=== PATIENT | male | born 1955 | race Caucasian/White ===

== ENCOUNTER → 2017-07-18 | Day surgery (SDC) | payer BC ==
[~2017-07-18] MED LIST: HYDROmorphone 1 MG/ML Syringe ONE; Lactated Ringers 1,000 ML IV SCH; Lactated Ringers 1,000 ML ONE; Lidocaine 1%/Sod Bicarbonate in NS 8.4% 1 ML Syringe IDERM PRN; Midazolam 1 MG/ML 2 ML SDV ONE; Ondansetron 4 MG/2 ML SDV ONE; Propofol 200 MG/20 ML SDV ONE; Sodium Chloride 0.9% 10 ML Syringe FLUSH PRN; Sodium Chloride 0.9% 10 ML Syringe FLUSH SCH; fentaNYL 100 MCG/2 ML SDV ONE; fentaNYL 250 MCG/5 ML SDV ONE
--- NOTE | 2017-07-18 11:39 | PCM.PREANE ---
Preanesthetic Assessment - Anesthesia/Transfusion/Family Hx Anesthesia History: Prior Anesthesia Without Reaction Family History of Anesthesia Reaction: No Transfusion History: No Prior Transfusion(s) - Review of Systems General: No Symptoms Pulmonary: No Symptoms Cardiovascular: No Symptoms Gastrointestinal: Constipation (on and off) Neurological: No Symptoms Other: Reports: Diabetes, Thyroid Problems - Physical Assessment NPO Status Date: 07/18/17 NPO Status Time: 07:00 Pulse: 81 O2 Sat by Pulse Oximetry: 95 Respiratory Rate: 16 Blood Pressure: 142/91 Temperature: 36.6 C Vital Signs: Last Vital Signs Temp 36.6 C 07/18/17 10:48 Pulse 81 07/18/17 10:48 Resp 16 07/18/17 10:48 BP 142/91 H 07/18/17 10:48 Pulse Ox 95 07/18/17 10:48 Height: 1.85 m Weight: 103.419 kg ASA Class: 3 Mental Status: Alert & Oriented x3 Dentition: Reports: Normal Dentition, Caries Thyro-Mental Finger Breadths: 3 Mouth Opening Finger Breadths: 3 ROM/Head Extension: Full Lungs: Clear to Auscultation, Normal Respiratory Effort Cardiovascular: Regular Rate, Regular Rhythm, No Murmurs - Lab Values: Laboratory Last Values POC Glucose 108 mg/dL (80-115) 07/18/17 11:07 MRSA (PCR) Negative 07/09/17 14:36 - Allergies Allergies/Adverse Reactions: Allergies Allergy/AdvReac Type Severity Reaction Status Date / Time codeine Allergy Rash Verified 02/25/14 14:54 - Blood Blood Available: No Product(s) Available: None - Anesthesia Plan Pre-Op Medication Ordered: None - Acknowledgements Anesthesia Type Planned: General Anesthesia Pt an Appropriate Candidate for the Planned Anesthesia: Yes Alternatives and Risks of Anesthesia Discussed w Pt/Guardian: Yes Pt/Guardian Understands and Agrees with Anesthesia Plan: Yes PreAnesthesia Questionnaire HEENT History: Reports: Allergic Rhinitis, Impaired Vision, Otitis Media, Sinusitis, Other (See Below) Other HEENT History: throat irritation, tinnitis, wears glasses Cardiovascular History: Reports: High Cholesterol, Hypertension, Other (See Below) Other Cardiovascular History: intermittent chest pain Respiratory History: Reports: None Gastrointestinal History: Reports: Chronic Constipation, GERD, Irritable Bowel Syndrome Genitourinary History: Reports: Prostate Disorder, Other (See Below) Other Genitourinary History: erectile dysfunction POLICY VALUE CALCULATOR History: Reports: None Musculoskeletal History: Reports: Osteoarthritis, Other (See Below) Other Musculoskeletal History: left elbow pain, left foot pain and sprain, tendintis, rotator cuff impingement Neurological History: Reports: Headaches, Chronic, Other (See Below) Other Neuro History: cervical radicular pain, cervical spine dengeration Psychiatric History: Reports: Anxiety, Depression, PTSD Endocrine/Metabolic History: Reports: Diabetes, Type II, Other (See Below) Other Endocrine/Metabolic History: thyroid nodule Hematologic History: Reports: None Immunologic History: Reports: None Oncologic (Cancer) History: Reports: None Dermatologic History: Reports: None - Past Surgical History Cardiovascular Surgical History: Reports: None Respiratory Surgical History: Reports: None GI Surgical History: Reports: Colonoscopy Female Surgical History: Reports: None Male Surgical History: Reports: None Neurological Surgical History: Reports: C-Spine Musculoskeletal Surgical History: Reports: Other (See Below) Other Musculoskeletal Surgeries/Procedures:: foot surgeyr, knee surgery, shoulder surgery Oncologic Surgical History: Reports: None Dermatological Surgical History: Reports: None - SUBSTANCE USE Smoking Status *Q: Never Smoker Days Per Week of Alcohol Use: 0 Number of Drinks Per Day: 0 Total Drinks Per Week: 0 Recreational Drug Use History: No Recreational Drug Type: Reports: Oxycodone, Valium - HOME MEDS Home Medications: Home Meds Diazepam 5 mg PO TID PRN 02/25/14 [History] Fluticasone Propionate [Flonase] 2 spray CAMILO QAM 02/25/14 [History] Hydrochlorothiazide 12.5 mg PO DAILY 02/25/14 [History] Multivitamin [Multi-Vitamin Daily] 1 tab PO DAILY 02/25/14 [History] amLODIPine/Benazepril [Lotrel 5-20 MG] 5 - 20 mg PO DAILY 10/03/14 [History] Amitriptyline [Elavil] 10 mg PO BEDTIME 07/17/17 [History] Cholecalciferol (Vitamin D3) [Vitamin D3] 2,000 unit PO DAILY 07/17/17 [History] Metoprolol Succinate 25 mg PO DAILY 07/17/17 [History] Omeprazole 40 mg PO DAILY 07/17/17 [History] Polyethylene Glycol 3350 [MiraLAX] 1 dose PO DAILY 07/17/17 [History] QUEtiapine Fumarate [Quetiapine Fumarate] 25 mg PO DAILY 07/17/17 [History] Sildenafil [Viagra] 50 mg PO ASDIRECTED PRN 07/17/17 [History] buPROPion HCl [Wellbutrin Xl] 300 mg PO DAILY 07/17/17 [History] metFORMIN [Glucophage XR] 500 mg PO BID 07/17/17 [History] Acetaminophen/oxyCODONE [Percocet 325-5 MG] 1 - 2 each PO Q6H PRN #40 tab [Rx] Aspirin 325 mg PO BID #84 tab 07/18/17 [Rx] - CURRENT (IN HOUSE) MEDS Current Meds: Current Medications Lactated Ringer's (Ringers, Lactated) 1,000 mls @ 125 mls/hr IV ASDIRECTED ANNIKA Stop: 07/18/17 23:00 Lidocaine/Sodium Bicarbonate (Buffered Lidocaine 1% In Ns 8.4%) 0.25 ml IDERM ONETIME PRN PRN Reason: Prior to IV Start Stop: 07/18/17 18:00 Sodium Chloride (Saline Flush) 10 ml FLUSH ASDIRECTED PRN PRN Reason: Keep Vein Open Stop: 07/18/17 18:00 Discontinued Medications Bupivacaine HCl (Marcaine 0.25%) Confirm Administered Dose 30 ml .ROUTE .STK- MED ONE Stop: 07/18/17 11:07
[2017-07-18] MEDS: Bupivacaine 0.25% 30 ML SDV ONE ×2 (13:03→14:50)
--- NOTE | 2017-07-18 15:12 | PCM.POSTAN ---
POST ANESTHESIA ASSESSMENT - MENTAL STATUS Mental Status: Alert, Oriented - VITAL SIGNS Pulse Rate: 81 SaO2: 90 Resp Rate: 9 Blood Pressure: 137/81 Temperature: 97.5 C - RESPIRATORY Respiratory Status: Respiratory Rate WNL, Airway Patent, O2 Saturation Stable - CARDIOVASCULAR CV Status: Pulse Rate WNL, Blood Pressure Stable - GASTROINTESTINAL GI Status: No Symptoms - PAIN Pain Score: 0 - POST OP HYDRATION Hydration Status: Adequate & Stable
--- NOTE | 2017-07-18 15:13 | CR ---
Left foot: Multiple fluoroscopic spot views were obtained of the left foot. Study obtained utilizing C-arm device in the operating room. Comparison: Prior CT foot exam of 05/29/17 and left foot x-ray of 03/04/17. Study shows reduction of previous Lisfranc dislocation/fracture with placement of plate and screws across the tarsometatarsal joints of the first through third digits. Additional screw is identified between the tarsometatarsal joint of the first digit. Additional screw is seen crossing the first cuneiform bone into the base of the second cuneiform bone in oblique orientation. Fluoroscopy time given as 52.8 seconds. Impression: 1. Reduction of previous Lisfranc dislocation/fracture with plate and screws being placed as described above. Diagnostic code #2
[2017-07-18] MEDS: Acetaminophen/oxyCODONE 325-5 MG Tab PO PRN ×2 (16:47→18:20)
[2017-07-18 19:34] VITALS: BP 166/77
--- NOTE | 2017-07-24 07:16 | PCM.OPNOTE ---
- General Post-Op/Procedure Note Date of Surgery/Procedure: 07/18/17 Operative Procedure(s): left first, second, and third tarsometatarsal joint fusion Pre Op Diagnosis: left chronic Lisfranc joint fracture-dislocation Post-Op Diagnosis: Same Anesthesia Technique: General LMA, Local Primary Surgeon: Leon Senior Anesthesia Provider: Rosalino Flanagan Prestidigitator: Rebecca Silva EBL in mLs: 10 Complications: None Condition: Good
--- NOTE | 2017-07-24 09:36 | OR ---
DATE OF OPERATION: 07/18/2017 SURGEON: Leon Senior MD OPERATION PERFORMED: Left 1st, 2nd, and 3rd tarsometatarsal joint fusion. PREOPERATIVE DIAGNOSIS: Left chronic Lisfranc joint fracture dislocation. POSTOPERATIVE DIAGNOSIS: Left chronic Lisfranc joint fracture dislocation. ANESTHESIA TECHNIQUE: General LMA with local. ANESTHESIA PROVIDER: Jose Flanagan CRNA MATERIAL DAMAGE ADJUSTER: Rebecca Silva PA-C. ESTIMATED BLOOD LOSS: 10 mL. COMPLICATIONS: None. CONDITION: Stable. DESCRIPTION OF PROCEDURE: The patient was identified in the preop holding area. Proper site was marked and identified by the surgeon. The patient was taken back to the operating theater where after adequate anesthesia, the patient's left lower extremity had a nonsterile tourniquet applied and was then sterilely prepped and draped in the usual sterile fashion. OR time-out was performed. The patient received 2 g IV Ancef. At this time, the left lower extremity was exsanguinated. Tourniquet was insufflated to 250 mmHg. At this time, a standard incision was made just lateral to the anterior tibialis insertion between the 1st and 2nd tarsometatarsal joints. Care was taken to protect the neurovascular bundles and full thickness incision was made through the skin. The extensor digitorum brevis was then elevated making sure to go subperiosteally at the joint. The 1st tarsometatarsal joint was identified and was then opened and distracted with the use of a radha as well as an osteotome and a mallet. All cartilaginous material was removed from the joint. At this time, attention was turned to the Lisfranc joint and dorsally there was a large amount of scar tissue between the 1st and 2nd metatarsal bases. This was then rongeured out, so we could reduce the Lisfranc joint. At this time, again the cartilage was removed from the 2nd tarsometatarsal joint, using a radha and an osteotome, it was found to be sufficiently denuded of all cartilaginous surfaces. At this time, under direct visualization, using C-arm fluoroscopy, I reduced the 1st tarsometatarsal joint, making sure there was no dorsal subluxation and a 3.5 drill was used for over drill of the near cortex from the 1st metatarsal into the medial cuneiform and a 2.5 drill bit was then used in the medial cuneiform for a lag by intent with 3.5 cortical screw. There was good compression across it and adequate fixation and reduction on both AP and lateral views. At this time, a dorsal 5 hole locking plate was placed over the top of this joint as well and 2 locking screws were placed on either side of the fused 1st tarsometatarsal joint and had adequate fixation. Attention was turned to the 2nd joint, at this time, a [id number] reduction clamp was used for reduction of the 2nd metatarsal to the 1st metatarsal through a small poke hole incision on the medial side of the foot. At this time, once this was done, another over drill bit was again was used through the medial cuneiform, at this time, going into the base of the 2nd metatarsal. A 3.5 cortical screw with lag by intent was then done from the medial cuneiform into the base of the 2nd metatarsal and had good purchase and adequate reduction of the Lisfranc joint on both AP and lateral views and oblique views. At this time, another dorsal locking plate was placed over the 2nd metatarsal tarsal joints and 2 locking screws were placed both proximally and distally to the fused joint, it had an adequate fixation. At this time, attention was turned to 3rd joint, another incision was made, at this time, directly over the 4th ray blunt dissection was taken down. Care was taken of the neurovascular bundles and the 3rd tarsometatarsal joint was identified, again a radha and an osteotome were used to denude all cartilage from the 3rd tarsometatarsal joint. Once this was sufficiently done, the patient was noted to have good compression across it without a lag screw, so at this time, I did do a locking plate dorsally over the 3rd tarsometatarsal joint and I had good compression as well as fixation on radiographs both AP oblique and lateral. At this time, adequate saline was irrigated through all wounds. Final films were taken showing adequate fixation of all tarsometatarsal joints and demineralized bone matrix putty was then placed all 3 joints around the fusion areas. Once this was done, 3-0 Vicryl was used subcutaneously and 4-0 nylon was used for the skin. The patient was placed in a sterile soft dressing as well as a posterior slab splint and sent to PACU in stable condition. ANESTHESIA: MMODAL /[id number] ORLIN
== END | disposition home or self-care (01) ==
LOC: JD.SDS 09:48
PROVIDERS: ATTEND Orthopaedic Surgery
DX: M24.475 Recurrent dislocation, left foot (principal); I10 Essential (primary) hypertension; E11.9 Type 2 diabetes mellitus without complications; F41.8 Other specified anxiety disorders; K21.9 Gastro-esophageal reflux disease without esophagitis; Z88.8 Allergy status to other drugs, medicaments and biological substances; Z79.84 Long term (current) use of oral hypoglycemic drugs; Z79.899 Other long term (current) drug therapy; J30.2 Other seasonal allergic rhinitis; Z95.2 Presence of prosthetic heart valve; Z98.890 Other specified postprocedural states
CPT/HCPCS: 28730; 76000; 82962; 87641; A9270; C1713; C1769; C1776; J1170; J2250; J2405; J3010; J3490; J7120; J2704

== ENCOUNTER 2019-05-24 16:40 | Emergency (ER) | payer MEDICARE, BC ==
[2019-05-24 17:16] VITALS: BP 147/100; PULSE 80
== END 2019-05-24 17:17 | disposition left against medical advice (07) ==
LOC: JD.ED 16:40
DX: Z53.21 Procedure and treatment not carried out due to patient leaving prior to being seen by health care provider (principal)

== ENCOUNTER 2019-06-04 11:58 | Day surgery (SDC) | payer MEDICARE, BC ==
[~2019-06-04 11:58] MED LIST changes: -HYDROmorphone 1 MG/ML Syringe ONE; -Lactated Ringers 1,000 ML ONE; -Midazolam 1 MG/ML 2 ML SDV ONE; -Ondansetron 4 MG/2 ML SDV ONE; -Propofol 200 MG/20 ML SDV ONE; -Sodium Chloride 0.9% 10 ML Syringe FLUSH SCH; -fentaNYL 100 MCG/2 ML SDV ONE; -fentaNYL 250 MCG/5 ML SDV ONE
[2019-06-04] MEDS: Bupivacaine 0.25% 10 ML SDV ONE ×2 (13:20→13:55)
--- NOTE | 2019-06-04 13:28 | PCM.PREANE ---
Preanesthetic Assessment - Anesthesia/Transfusion/Family Hx Anesthesia History: Prior Anesthesia Without Reaction Family History of Anesthesia Reaction: No Transfusion History: No Prior Transfusion(s) - Review of Systems General: No Symptoms Pulmonary: No Symptoms Cardiovascular: No Symptoms Gastrointestinal: No Symptoms Neurological: No Symptoms Other: Reports: None, Diabetes - Physical Assessment NPO Status Date: 06/04/19 NPO Status Time: 05:00 Height: 1.85 m Weight: 98.9 kg ASA Class: 2 Mental Status: Alert & Oriented x3 Airway Class: Mallampati = 1 Dentition: Reports: Caries Thyro-Mental Finger Breadths: 3 Mouth Opening Finger Breadths: 3 ROM/Head Extension: Full Lungs: Clear to Auscultation, Normal Respiratory Effort Cardiovascular: Regular Rate, Regular Rhythm - Lab Values: Laboratory Last Values POC Glucose 90 mg/dL (80-115) 06/04/19 12:39 - Allergies Allergies/Adverse Reactions: Allergies Allergy/AdvReac Type Severity Reaction Status Date / Time codeine Allergy Rash Verified 06/03/19 16:56 Sulfa (Sulfonamide Allergy Rash Verified 06/03/19 16:56 Antibiotics) - Blood Blood Available: No Product(s) Available: None - Anesthesia Plan Pre-Op Medication Ordered: None - Acknowledgements Anesthesia Type Planned: MAC Pt an Appropriate Candidate for the Planned Anesthesia: Yes Alternatives and Risks of Anesthesia Discussed w Pt/Guardian: Yes Pt/Guardian Understands and Agrees with Anesthesia Plan: Yes PreAnesthesia Questionnaire HEENT History: Reports: Allergic Rhinitis, Hard of Hearing, Impaired Vision, Otitis Media, Sinusitis, Other (See Below) Other HEENT History: throat irritation, tinnitis, wears glasses Cardiovascular History: Reports: High Cholesterol, Hypertension, Other (See Below) Other Cardiovascular History: intermittent chest pain Respiratory History: Reports: None Gastrointestinal History: Reports: Chronic Constipation, GERD, Irritable Bowel Syndrome, Other (See Below) Other Gastrointestinal History: epigastric pain, abdominal pain, abdominal surgery Genitourinary History: Reports: Prostate Disorder, Other (See Below) Other Genitourinary History: erectile dysfunction, dysuria, frequency FULL DECATOR OPERATOR History: Reports: None Musculoskeletal History: Reports: Osteoarthritis, Other (See Below) Other Musculoskeletal History: left elbow pain, left foot pain and sprain, tendintis, rotator cuff impingement, hand laceration Neurological History: Reports: Headaches, Chronic, Other (See Below) Other Neuro History: cervical radicular pain, cervical spine dengeration, spondylosis Psychiatric History: Reports: Anxiety, Depression, PTSD Endocrine/Metabolic History: Reports: Diabetes, Type II, Obesity/BMI 30+, Other (See Below) Other Endocrine/Metabolic History: thyroid nodule, goiter Hematologic History: Reports: None Immunologic History: Reports: None Oncologic (Cancer) History: Reports: None Dermatologic History: Other Dermatologic History: bug bite, skin infection, corn/callous - Past Surgical History HEENT Surgical History: Reports: None Cardiovascular Surgical History: Reports: None Respiratory Surgical History: Reports: None GI Surgical History: Reports: Colonoscopy Female Surgical History: Reports: None Male Surgical History: Reports: None Endocrine Surgical History: Reports: None Neurological Surgical History: Reports: C-Spine Musculoskeletal Surgical History: Reports: Other (See Below) Other Musculoskeletal Surgeries/Procedures:: foot surgeyr, knee surgery, shoulder surgery Oncologic Surgical History: Reports: None Dermatological Surgical History: Reports: None - SUBSTANCE USE Smoking Status *Q: Never Smoker Tobacco Use Within Last Twelve Months: No Second Hand Smoke Exposure: Yes Days Per Week of Alcohol Use: 1 Number of Drinks Per Day: 1 Total Drinks Per Week: 1 Recreational Drug Use History: No - HOME MEDS Home Medications: Home Meds Fluticasone Propionate [Flonase] 2 spray CAMILO QAM 02/25/14 [History] hydroCHLOROthiazide [Hydrochlorothiazide] 12.5 mg PO DAILY 02/25/14 [History] Cholecalciferol (Vitamin D3) [Vitamin D3] 2,000 unit PO DAILY 07/17/17 [History] metFORMIN [Glucophage XR] 500 mg PO BID 07/17/17 [History] Esomeprazole Magnesium [Nexium] 20 mg PO DAILY 06/03/19 [History] Multivitamin/Iron/Folic Acid [Centrum Adults Tablet] 1 tab PO DAILY 06/03/19 [ History] Tamsulosin [Flomax] 0.4 mg PO DAILY 06/03/19 [History] polyethylene glycoL 3350 [MiraLAX] 1 dose PO DAILY 06/03/19 [History] Acetaminophen/HYDROcodone [[place] 325-5 MG] 1 - 2 tab PO Q6H PRN #30 tablet 06/04 [Rx] Aspirin 325 mg PO BID #84 tab 06/04/19 [Rx] - CURRENT (IN HOUSE) MEDS Current Meds: Current Medications Lactated Ringer's (Ringers, Lactated) 1,000 mls @ 125 mls/hr IV ASDIRECTED ANNIKA Lidocaine/Sodium Bicarbonate (Buffered Lidocaine 1% In Ns 8.4%) 0.25 ml IDERM ONETIME PRN PRN Reason: Prior to IV Start Sodium Chloride (Saline Flush) 10 ml FLUSH ASDIRECTED PRN PRN Reason: Keep Vein Open Discontinued Medications Bupivacaine HCl (Sensorcaine-Mpf 0.25%) Confirm Administered Dose 40 ml .ROUTE .STK-MED ONE Stop: 06/04/19 12:15
[2019-06-04] MEDS ORDERED: Propofol 200 MG/20 ML SDV ONE ×2 (13:34→13:54)
[2019-06-04] MEDS ORDERED: fentaNYL 250 MCG/5 ML SDV ONE (13:34)
[2019-06-04] MEDS ORDERED: Midazolam 1 MG/ML 2 ML SDV ONE (13:34)
[2019-06-04] MEDS ORDERED: ceFAZolin 1 GM Vial ONE (13:45)
[2019-06-04] MEDS ORDERED: Labetalol 100 MG/20 ML MDV ONE (14:00)
[2019-06-04] MEDS ORDERED: Ketorolac 30 MG/ML SDV ONE (14:05)
[2019-06-04] MEDS ORDERED: Lactated Ringers 1,000 ML ONE (14:12)
--- NOTE | 2019-06-04 15:13 | CR ---
Left foot: Two views of the left forefoot were obtained. Study obtained utilizing C-arm device. Comparison: Previous left foot exam of 03/04/17. Study shows resection around the PIP joint of the second digit. Longitudinal pin is in place. Fluoroscopy time is given as 6.4 seconds. Impression: 1. Procedural study as noted above. Diagnostic code #2 This report was dictated in [place] Standard Time
[2019-06-04 15:33] VITALS: BP 103/65; PULSE 62
--- NOTE | 2019-06-08 07:05 | PCM.OPNOTE ---
- General Post-Op/Procedure Note Date of Surgery/Procedure: 06/04/19 Operative Procedure(s): left second toe claw toe correction with resection arthroplasty with extensor lengthening, and flexor tenotomy with percutaneous pinning Pre Op Diagnosis: left second claw toe with fixed deformity Post-Op Diagnosis: Same Anesthesia Technique: Local, MAC Primary Surgeon: Leon Senior Anesthesia Provider: Rosalino Flanagan Project Management Director: Rebecca Silva EBL in mLs: 10 Complications: None Condition: Good
--- NOTE | 2019-06-10 08:06 | OR ---
DATE OF OPERATION: 06/04/2019 SURGEON: Leon Senior MD OPERATION PERFORMED: Left 2nd claw toe correction with resection arthroplasty with extensor lengthening of flexor tenotomy with percutaneous pinning. PREOPERATIVE DIAGNOSIS: Left 2nd claw toe fixed deformity. POSTOPERATIVE DIAGNOSIS: Left 2nd claw toe fixed deformity. ANESTHESIA: Local MAC. ANESTHESIA PROVIDER: Jose Bergeron. CARPET SEWER: Rebecca Silva PA-C ESTIMATED BLOOD LOSS: 10 mL. COMPLICATIONS: None. CONDITION: Stable. DESCRIPTION OF PROCEDURE: The patient was identified in the preoperative holding area. Proper site was marked and identified by the surgeon. The patient was taken back to the operating theater, where after adequate anesthesia, the patient's right lower extremity was sterilely prepped and draped in usual sterile fashion. OR time- out was performed. The patient received 2 g of IV Ancef. At this time, right lower extremity was exsanguinated and the Esmarch was used as a tourniquet on the leg. 1% lidocaine without epinephrine and 0.25% Marcaine without epinephrine was then used to anesthetize the left 2nd toe as well as the incisional sites. Incision was made plantarly 1st over the flexor tendon distally and this was taken down to the tendon sheath. The tendon sheath was then opened. Ragnell retractors protected the neurovascular bundles at this time. The flexor tenotomy of the deep flexor tendons was then performed and the patient had correction of the DIP claw-toe deformity at that time. Incision was then made over the dorsum of the 2nd toe from the MTP joint distally to the PIP joint at this time, and this was taken down to the MCP capsule and an MCP dorsal capsulotomy was then performed. After this, a Z-lengthening of the extensor tendon was done all the way down past the PIP joint. PIP joint was identified and a head-neck resection of the PIP joint was then undertaken at this time for resection arthroplasty. The patient was noted to have good complete correction of the claw toe at this time. A 0.045 K-wire was then placed in a retrograde fashion through the tip of the toe all the way through the proximal phalanx and into the metatarsal in a straightened position. At this time, it was found to be adequately corrected. Adequate saline was then irrigated through the wound. 3-0 Vicryl was then used for repair of the Z-lengthening of the extensor tendon. 3-0 Vicryl was used subcutaneously and 4-0 nylon was used for closure of the skin. The patient was placed in a sterile soft dressing and a postop shoe and sent to the PACU in stable condition. PORTIA /[id number]
== END 2019-06-04 15:30 | disposition home or self-care (01) ==
LOC: JD.SDS 11:58
PROVIDERS: ATTEND Orthopaedic Surgery
DX: M20.5X2 Other deformities of toe(s) (acquired), left foot (principal); I10 Essential (primary) hypertension; E11.9 Type 2 diabetes mellitus without complications; E78.1 Pure hyperglyceridemia; E78.00 Pure hypercholesterolemia, unspecified; F32.9 Major depressive disorder, single episode, unspecified; F41.9 Anxiety disorder, unspecified; F43.10 Post-traumatic stress disorder, unspecified; G89.29 Other chronic pain; H90.3 Sensorineural hearing loss, bilateral; E04.1 Nontoxic single thyroid nodule; K21.9 Gastro-esophageal reflux disease without esophagitis; M19.90 Unspecified osteoarthritis, unspecified site; E66.9 Obesity, unspecified; Z88.5 Allergy status to narcotic agent; Z88.2 Allergy status to sulfonamides; Z79.82 Long term (current) use of aspirin; Z79.84 Long term (current) use of oral hypoglycemic drugs; Z79.899 Other long term (current) drug therapy
CPT/HCPCS: 28285; 76000; 82962; 93005; C1713; J0690; J1885; J2250; J2704; J3010; J3490; J7120; 01480

== ENCOUNTER 2020-05-16 07:12 | Day surgery (SDC) | payer MEDICARE, BC ==
[~2020-05-16 07:12] MED LIST changes: +Acetaminophen 325 MG Tab PO SCH; +EPINEPHrine 1 MG/ML SDV ONE; +Midazolam 1 MG/ML 2 ML SDV ONE; +Pregabalin 25 MG Cap PO SCH; +Propofol 200 MG/20 ML SDV ONE; +Ropivacaine 0.5% 5 MG/ML 30 ML SDV ONE; +ceFAZolin 1 GM Vial ONE; +fentaNYL 100 MCG/2 ML SDV ONE; +oxyCODONE ER 10 MG TAB.ER PO SCH
--- NOTE | 2020-05-16 07:23 | PCM.PREANE ---
Preanesthetic Assessment - Procedure Proposed Procedure: left total knee - Anesthesia/Transfusion/Family Hx Anesthesia History: Prior Anesthesia Without Reaction Family History of Anesthesia Reaction: No Transfusion History: No Prior Transfusion(s) - Review of Systems General: No Symptoms Pulmonary: No Symptoms Cardiovascular: No Symptoms Gastrointestinal: No Symptoms Neurological: No Symptoms Other: Reports: Diabetes, Thyroid Problems (2 nodules), Sinus Problem (allergies), Depression, Anxiety - Physical Assessment NPO Status Date: 05/15/20 NPO Status Time: 20:00 Vital Signs: 128/90 89 98-100% 16 97.9 Height: 6 ft 1 in Weight: 94.302 kg ASA Class: 2 Mental Status: Alert & Oriented x3 Airway Class: Mallampati = 1 Dentition: Reports: Broken Tooth/Teeth, Missing Tooth/Teeth Thyro-Mental Finger Breadths: 3 Mouth Opening Finger Breadths: 3 ROM/Head Extension: Full Lungs: Clear to Auscultation, Normal Respiratory Effort Cardiovascular: Regular Rate, Regular Rhythm - Lab Values: Laboratory Last Values MRSA (PCR) Negative 04/26/20 09:59 - Allergies Allergies/Adverse Reactions: Allergies Allergy/AdvReac Type Severity Reaction Status Date / Time codeine Allergy Rash Verified 05/12/20 13:49 Sulfa (Sulfonamide Allergy Rash Verified 05/12/20 13:49 Antibiotics) - Blood Blood Available: No - Acknowledgements Anesthesia Type Planned: Spinal Pt an Appropriate Candidate for the Planned Anesthesia: Yes Alternatives and Risks of Anesthesia Discussed w Pt/Guardian: Yes Pt/Guardian Understands and Agrees with Anesthesia Plan: Yes PreAnesthesia Questionnaire HEENT History: Reports: Allergic Rhinitis, Hard of Hearing, Impaired Vision, Otitis Media, Sinusitis, Other (See Below) Other HEENT History: throat irritation, tinnitis, wears glasses Cardiovascular History: Reports: High Cholesterol, Hypertension, Other (See Below) Other Cardiovascular History: intermittent chest pain Respiratory History: Reports: None Gastrointestinal History: Reports: Chronic Constipation, GERD, Irritable Bowel Syndrome, Other (See Below) Other Gastrointestinal History: epigastric pain, abdominal pain, abdominal surgery, globus sensation Genitourinary History: Reports: Prostate Disorder, UTI, Recurrent, Other (See Below) Other Genitourinary History: erectile dysfunction, dysuria, frequency [employer] History: Reports: None Musculoskeletal History: Reports: Osteoarthritis, Other (See Below) Other Musculoskeletal History: left elbow pain, left foot pain and sprain, tendintis, rotator cuff impingement, hand laceration Neurological History: Reports: Headaches, Chronic, Other (See Below) Other Neuro History: cervical radicular pain, cervical spine dengeration, spondylosis Psychiatric History: Reports: Anxiety, Depression, PTSD Endocrine/Metabolic History: Reports: Diabetes, Type II, Other (See Below) Other Endocrine/Metabolic History: thyroid nodule, goiter Hematologic History: Reports: None Immunologic History: Reports: None Oncologic (Cancer) History: Reports: None Dermatologic History: Other Dermatologic History: bug bite, skin infection, corn/callous - Past Surgical History HEENT Surgical History: Reports: None Cardiovascular Surgical History: Reports: None Respiratory Surgical History: Reports: None GI Surgical History: Reports: Colonoscopy Female Surgical History: Reports: None Male Surgical History: Reports: None Endocrine Surgical History: Reports: None Neurological Surgical History: Reports: C-Spine Musculoskeletal Surgical History: Reports: Other (See Below) Other Musculoskeletal Surgeries/Procedures:: foot surgeyr, knee surgery, shoulder surgery Oncologic Surgical History: Reports: None Dermatological Surgical History: Reports: None - SUBSTANCE USE Tobacco Use Status *Q: Never Tobacco User Tobacco Use Within Last Twelve Months: No Second Hand Smoke Exposure: Yes Days Per Week of Alcohol Use: 4 Number of Drinks Per Day: 2 (beer or rum) Total Drinks Per Week: 8 Recreational Drug Use History: No - HOME MEDS Home Medications: Home Meds Fluticasone Propionate [Flonase] 2 spray CAMILO QAM 02/25/14 [History] hydroCHLOROthiazide [Hydrochlorothiazide] 12.5 mg PO DAILY 02/25/14 [History] metFORMIN [Glucophage XR] 750 mg PO BID 07/17/17 [History] Multivitamin/Iron/Folic Acid [Centrum Adults Tablet] 1 tab PO DAILY 06/03/19 [History] Tamsulosin [Flomax] 0.4 mg PO DAILY 06/03/19 [History] polyethylene glycoL 3350 [MiraLAX] 1 dose PO DAILY 06/03/19 [History] Albuterol [Proventil HFA] 1 - 2 puff INH Q4H PRN 05/12/20 [History] Ascorbic Acid [Vitamin C] 1,000 mg PO DAILY 05/12/20 [History] Cholecalciferol (Vitamin D3) [Vitamin D3] 5,000 unit PO DAILY 05/12/20 [History] Omeprazole 40 mg PO DAILY 05/12/20 [History] amLODIPine Besylate/Benazepril [Amlodipine-Benazepril 5-20 mg] 1 tab PO DAILY 05/12/20 [History] Aspirin [Aspirin EC] 325 mg PO BID #84 tab 05/16/20 [Rx] Cyclobenzaprine [Flexeril] 10 mg PO BID PRN #20 tab 05/16/20 [Rx] oxyCODONE 5 - 10 mg PO Q4H PRN #40 tab 05/16/20 [Rx] - CURRENT (IN HOUSE) MEDS Current Meds: Current Medications Acetaminophen (Tylenol) 975 mg PO ONETIME ANNIKA Stop: 05/16/20 13:00 Morphine Sulfate 8 mg/Epinephrine HCl 0.3 mg/Cefuroxime Sodium 750 mg/Ketorolac Tromethamine 30 mg/Sodium Chloride 7.9 ml 0 mg .XX ASDIRECTED PRN PRN Reason: Pain Stop: 05/16/20 13:00 Lactated Ringer's (Ringers, Lactated) 1,000 mls @ 125 mls/hr IV ASDIRECTED ANNIKA Stop: 05/16/20 23:00 Lidocaine/Sodium Bicarbonate (Buffered Lidocaine 1% In Ns 8.4%) 0.25 ml IDERM ONETIME PRN PRN Reason: Prior to IV Start Stop: 05/16/20 18:00 Oxycodone HCl (Oxycontin) 10 mg PO ONETIME ANNIKA Stop: 05/16/20 13:00 Pregabalin (Lyrica) 50 mg PO ONETIME ANNIKA Stop: 05/16/20 13:00 Sodium Chloride (Saline Flush) 10 ml FLUSH ASDIRECTED PRN PRN Reason: Keep Vein Open Stop: 05/16/20 18:00 Discontinued Medications Cefazolin Sodium (Ancef) Confirm Administered Dose 2 gm .ROUTE .STK-MED ONE Stop: 05/16/20 06:56 Epinephrine HCl (Adrenalin) Confirm Administered Dose 1 mg .ROUTE .STK-MED ONE Stop: 05/16/20 07:02 Fentanyl (Sublimaze) Confirm Administered Dose 100 mcg .ROUTE .STK-MED ONE Stop: 05/16/20 06:56 Midazolam HCl (Versed 1 Mg/Ml) Confirm Administered Dose 2 mg .ROUTE .STK-MED ONE Stop: 05/16/20 06:56 Propofol (Diprivan 20 Ml) Confirm Administered Dose 600 mg .ROUTE .[facility]-MED ONE Stop: 05/16/20 06:56 Ropivacaine (Naropin 0.5%) Confirm Administered Dose 30 ml .ROUTE .[facility]-MED ONE Stop: 05/16/20 07:02
[2020-05-16] MEDS ORDERED: Lactated Ringers 1,000 ML ONE ×2 (08:09→09:32)
[2020-05-16] MEDS ORDERED: fentaNYL 100 MCG/2 ML SDV IVPUSH PRN (08:17)
[2020-05-16] MEDS ORDERED: Ondansetron 4 MG/2 ML SDV IVPUSH PRN (08:17)
[2020-05-16] MEDS ORDERED: HYDROmorphone 0.5 MG/0.5 ML Syringe IVPUSH PRN (08:17)
[2020-05-16] MEDS: Bupivacaine 0.25% 10 ML SDV ONE ×2 (09:02→09:08)
[2020-05-16] MEDS: Vancomycin 1 GM SDV ONE ×3 (09:03→09:12)
[2020-05-16] MEDS: Morphine 8 MG, EPINEPHrine 0.3 MG, Cefuroxime 750 MG, Ketorolac 30 MG, Sodium Chloride ... PRN ×15 (09:03→09:11)
[2020-05-16] MEDS ORDERED: Ondansetron 4 MG/2 ML SDV ONE (09:12)
[2020-05-16] MEDS ORDERED: Ketorolac 30 MG/ML SDV ONE (09:12)
--- NOTE | 2020-05-16 09:44 | PCM.POSTAN ---
POST ANESTHESIA ASSESSMENT - MENTAL STATUS Mental Status: Alert, Oriented - VITAL SIGNS Vital Signs: Last Vital Signs Temp 97.9 F 05/16/20 07:15 Pulse 89 05/16/20 07:15 Resp 16 05/16/20 07:15 BP 128/90 05/16/20 07:15 Pulse Ox 100 05/16/20 07:15 0937 109/68 74 14 97.6 98% - RESPIRATORY Respiratory Status: Respiratory Rate WNL, Airway Patent, O2 Saturation Stable, Supplemental Oxygen - CARDIOVASCULAR CV Status: Pulse Rate WNL, Blood Pressure Stable - GASTROINTESTINAL GI Status: No Symptoms - PAIN Pain Score: 0 - POST OP HYDRATION Hydration Status: Adequate & Stable
--- NOTE | 2020-05-16 10:00 | PCM.SN.2 ---
- Free Text/Narrative Note: Left selective femoral nerve block at the adductor canal for post-procedure pain control under US guidance requested by Dr. Senior. Date: 05-16-2020 Time Out: 945 Start: 950 End: 951 Chart reviewed. Consent signed. Questions answered. Appropriate monitors applied. Time out performed. Left mid-shaft femur identified with ultrasound, scanning medially of femur, the femoral artery in the adductor canal visualized, and the femoral nerve located laterally to the artery. The skin was prepped lateral to the ultrasound probe with chlorahexadine times two. The 21ga 4 insulated block needle was inserted under direct ultrasound guidance into the adductor canal. 25mL of 0.5% ropivacaine with 1:200,000 epinephrine was injected circumferentially around the nerve with intermittent negative aspiration noted. Patient tolerated the procedure well. Sterile technique noted along with sterile gloves, mask, and sterile probe cover. See picture on progress note and vital signs on nurses notes. Block completed in PACU. Gina Dozier CRNA
[2020-05-16 12:37] VITALS: BP 123/85; PULSE 78
[2020-05-16] MEDS ORDERED: oxyCODONE 5 MG Tab PO PRN (12:41)
--- NOTE | 2020-05-16 12:53 | PCM48HPAN ---
Post Anesthesia Note - EVALUATION WITHIN 48HRS OF ANESTHETIC Vital Signs in Normal Range: Yes Patient Participated in Evaluation: Yes Respiratory Function Stable: Yes Airway Patent: Yes Cardiovascular Function Stable: Yes Hydration Status Stable: Yes Pain Control Satisfactory: Yes Nausea and Vomiting Control Satisfactory: Yes Mental Status Recovered: Yes Vital Signs: Last Vital Signs Temp 97.2 F 05/16/20 12:35 Pulse 78 05/16/20 12:35 Resp 16 05/16/20 12:35 BP 123/85 05/16/20 12:35 Pulse Ox 99 05/16/20 12:35 - COMMENTS/OBSERVATIONS Free Text/Narrative:: Ate already. Denies nausea or pain. Waiting for PT
--- NOTE | 2020-05-17 10:55 | CR ---
Left knee: AP and lateral views of the left knee were obtained. Comparison: No previous study. Knee prosthesis is noted. Components are aligned. Soft tissue air is noted from the surgical procedure. No acute bony abnormality is appreciated. Impression: 1. Satisfactory postop radiographic appearance of recently placed left knee prosthesis. Diagnostic code #2
--- NOTE | 2020-05-31 14:41 | PCM.OPNOTE ---
- General Post-Op/Procedure Note Date of Surgery/Procedure: 05/16/20 Operative Procedure(s): left total knee arthroplasty Pre Op Diagnosis: left knee osteoarthrosis Post-Op Diagnosis: Same Anesthesia Technique: Local, MAC, Spinal Primary Surgeon: Leon Senior Anesthesia Provider: Gina Dozier Engineer Technical Staff: Rebecca Silva Engineer Technical Staff: Delmy Powers in mLs: 5 Complications: None Condition: Good Free Text/Narrative:: 5 5 11mm 32x10
--- NOTE | 2020-05-31 15:10 | OR ---
DATE OF OPERATION: 05/16/2020 SURGEON: Leon Senior MD OPERATION PERFORMED: Left total knee arthroplasty. PREOPERATIVE DIAGNOSIS: Left knee osteoarthrosis. POSTOPERATIVE DIAGNOSIS: Left knee osteoarthrosis. ANESTHESIA: Local MAC with spinal. ANESTHESIA PROVIDER: Gina Dozier CRNA METAL COATER: Rebecca Silva PA-C, and Delmy Powers LPN ESTIMATED BLOOD LOSS: 5 mL. COMPLICATIONS: None. CONDITION: Stable. IMPLANTS: 1. Norman size 5 cemented PS femur. 2. Norman size 5 cemented [place] tibial base plate. 3. Roxy size 5, 11 mm PS X3 polyethylene insert. 4. Roxy size 32 x 10 mm cemented asymmetric patella. DESCRIPTION OF PROCEDURE: The patient was identified in the preop holding area. Proper site was marked and identified by the surgeon. The patient was taken back to the operating theater. After adequate anesthesia, the patient's left lower extremity had a nonsterile tourniquet applied and it was sterilely prepped and draped in the usual sterile fashion. OR time-out was performed. The patient received 2 g IV Ancef. At this time, the left lower extremity was exsanguinated. Tourniquet was insufflated to 300 mmHg. Standard medial parapatellar incision was made. Medial parapatellar arthrotomy was created. Deep fibers of the MCL were raised and anterior fat pad was resected. At this time, attention was turned to the patella. Patella measured at 23, it was resected to a 13 for a 32 x 10 mm patella. Drill holes were then drilled and found to be in adequate position. The drill was then drilled in the distal femur and the intramedullary distal femoral cutting guide was then placed. 8 mm was resected off the distal femur and was found to be an adequate resection. Sizing guide was placed. It was found to be a size 5 cemented PS femur that was shown on the implant record at the beginning of this dictation. The drill holes were drilled for the epicondylar axis using Whitesides line and epicondyles as reference. At this time, the 4-in-1 cutting block was placed. An anterior posterior and anterior and posterior chamfer cuts were then completed. Box cut was completed at this time. Attention was turned to the tibia. The posterior medial lateral retractors were placed. The extramedullary tibial guide was placed. It was placed in the old footprint of the ACL. It was aligned with the center of the ankle and 0 degrees of slope, 9 mm was then resected off the unaffected side. There was found to be an acceptable reduction. At this time, posterior osteophytes were removed along with medial and lateral meniscus. A trial implant was placed with a correct sized tibia that was mentioned at the beginning of the dictation. A Norman size 5, 11 mm PS X3 polyethylene insert was then placed. The patient's knee was brought through range of motion. The patella was tracking centrally and was stable to varus and valgus stress. Alignment was found to be roughly at 0 degrees. The tibia was stamped and drilled in proper rotation. The universal tibial base plate was impacted in place. Next, the Norman size 5 cemented PS femur impacted into place and the Roxy size 5, 11 mm PS X3 polyethylene insert was placed. The patient's knee was brought into full extension. The patella was then cemented in place at this time. One liter Irrisept solution was irrigated through the knee along with 1 L of pulse lavage irrigation with Ancef. Periarticular injection was then completed. The patient's knee was brought through a range of motion. Once the cement had time to set up and it was found to be stable to varus valgus stress, the patella was tracking centrally with full range of motion. At this time, a #2 barbed suture was used for closure of the medial parapatellar arthrotomy. Topical tranexamic acid was placed. 2-0 Vicryl was used subcutaneously, Prineo was used for the skin. The patient tolerated the procedure well and was sent to the PACU in stable condition. MMODAL /[id number] ORLIN
== END 2020-05-16 14:05 | disposition home or self-care (01) ==
LOC: JD.SDS 07:12
PROVIDERS: ATTEND Orthopaedic Surgery
DX: M17.12 Unilateral primary osteoarthritis, left knee (principal); I10 Essential (primary) hypertension; G89.29 Other chronic pain; E11.9 Type 2 diabetes mellitus without complications; K21.9 Gastro-esophageal reflux disease without esophagitis; E66.9 Obesity, unspecified; G89.18 Other acute postprocedural pain; Z79.84 Long term (current) use of oral hypoglycemic drugs; Z88.5 Allergy status to narcotic agent; Z88.2 Allergy status to sulfonamides; Z79.899 Other long term (current) drug therapy; Z98.890 Other specified postprocedural states; Z68.27 Body mass index [BMI] 27.0-27.9, adult
CPT/HCPCS: 27447; 73560; 82962; 87641; 97110; 97116; 97161; 97165; A9270; C1713; C1776; J0171; J0690; J0697; J1885; J2250; J2270; J2370; J2405; J2704; J2795; J3010; J3370; J3490; J7120; 01402; 64450

== ENCOUNTER 2020-07-11 18:54 | Emergency (ER) | payer MEDICARE, BC ==
[2020-07-11 19:04] VITALS: BP 144/88; PULSE 95
[2020-07-11] MEDS ORDERED: Lidocaine 1% 10 ML MDV INJECT ONE (19:24)
--- NOTE | 2020-07-11 20:01 | EDM.PDOC ---
ED HPI GENERAL MEDICAL PROBLEM - General Chief Complaint: Laceration Stated Complaint: CUT POINTER FINGER ON LEFT HAND Time Seen by Provider: 07/11/20 19:07 Source of Information: Reports: Patient, RN Notes Reviewed History Limitations: Reports: No Limitations - History of Present Illness INITIAL COMMENTS - FREE TEXT/NARRATIVE: Patient is a 65-year-old male presenting to the emergency department with complaints of a laceration to his left index finger. States he was working on a ladder and slipped. Finger caught on the ladder causing laceration. He has no other injuries associated with the fall. He states he is up-to-date on his tetanus vaccination. - Related Data Allergies Allergy/AdvReac Type Severity Reaction Status Date / Time codeine Allergy Rash Verified 07/11/20 19:04 Sulfa (Sulfonamide Allergy Rash Verified 07/11/20 19:04 Antibiotics) Home Meds: Home Meds Fluticasone Propionate [Flonase] 2 spray CAMILO QAM 02/25/14 [History] hydroCHLOROthiazide [Hydrochlorothiazide] 12.5 mg PO DAILY 02/25/14 [History] metFORMIN [Glucophage XR] 750 mg PO BID 07/17/17 [History] Multivitamin/Iron/Folic Acid [Centrum Adults Tablet] 1 tab PO DAILY 06/03/19 [History] Tamsulosin [Flomax] 0.4 mg PO DAILY 06/03/19 [History] polyethylene glycoL 3350 [MiraLAX] 1 dose PO DAILY 06/03/19 [History] Albuterol [Proventil HFA] 1 - 2 puff INH Q4H PRN 05/12/20 [History] Ascorbic Acid [Vitamin C] 1,000 mg PO DAILY 05/12/20 [History] Cholecalciferol (Vitamin D3) [Vitamin D3] 5,000 unit PO DAILY 05/12/20 [History] Omeprazole 40 mg PO DAILY 05/12/20 [History] amLODIPine Besylate/Benazepril [Amlodipine-Benazepril 5-20 mg] 1 tab PO DAILY 05/12/20 [History] Aspirin [Aspirin EC] 325 mg PO BID #84 tab 05/16/20 [Rx] Cyclobenzaprine [Flexeril] 10 mg PO BID PRN #20 tab 05/16/20 [Rx] oxyCODONE 5 - 10 mg PO Q4H PRN #40 tab 05/16/20 [Rx] Past Medical History HEENT History: Reports: Allergic Rhinitis, Hard of Hearing, Impaired Vision, Otitis Media, Sinusitis, Other (See Below) Other HEENT History: throat irritation, tinnitis, wears glasses Cardiovascular History: Reports: High Cholesterol, Hypertension, Other (See Below) Other Cardiovascular History: intermittent chest pain Respiratory History: Reports: None Gastrointestinal History: Reports: Chronic Constipation, GERD, Irritable Bowel Syndrome, Other (See Below) Other Gastrointestinal History: epigastric pain, abdominal pain, abdominal surgery, globus sensation Genitourinary History: Reports: Prostate Disorder, UTI, Recurrent, Other (See Below) Other Genitourinary History: erectile dysfunction, dysuria, frequency WEED CONTROLLER History: Reports: None Musculoskeletal History: Reports: Osteoarthritis, Other (See Below) Other Musculoskeletal History: left elbow pain, left foot pain and sprain, tendintis, rotator cuff impingement, hand laceration Neurological History: Reports: Headaches, Chronic, Other (See Below) Other Neuro History: cervical radicular pain, cervical spine dengeration, spondylosis Psychiatric History: Reports: Anxiety, Depression, PTSD Endocrine/Metabolic History: Reports: Diabetes, Type II, Other (See Below) Other Endocrine/Metabolic History: thyroid nodule, goiter Hematologic History: Reports: None Immunologic History: Reports: None Oncologic (Cancer) History: Reports: None Dermatologic History: Other Dermatologic History: bug bite, skin infection, corn/callous - Infectious Disease History Infectious Disease History: Reports: None - Past Surgical History HEENT Surgical History: Reports: None Cardiovascular Surgical History: Reports: None Respiratory Surgical History: Reports: None GI Surgical History: Reports: Colonoscopy Male Surgical History: Reports: None Endocrine Surgical History: Reports: None Neurological Surgical History: Reports: C-Spine Musculoskeletal Surgical History: Reports: Knee Replacement, Other (See Below) Other Musculoskeletal Surgeries/Procedures:: foot surgeyr, knee surgery, shoulder surgery Oncologic Surgical History: Reports: None Dermatological Surgical History: Reports: None Social & Family History - Tobacco Use Tobacco Use Status *Q: Never Tobacco User Second Hand Smoke Exposure: No - Caffeine Use Caffeine Use: Reports: None - Recreational Drug Use Recreational Drug Use: No ED ROS GENERAL - Review of Systems Review Of Systems: Comprehensive ROS is negative, except as noted in HPI. ED EXAM, SKIN/RASH Exam: See Below General Appearance: Alert, WD/WN, No Apparent Distress Respiratory/Chest: No Respiratory Distress, Lungs Clear, Normal Breath Sounds, No Accessory Muscle Use, Chest Non-Tender Cardiovascular: Normal Peripheral Pulses, Regular Rate, Rhythm, No Edema, No Gallop, No JVD, No Murmur, No Rub Skin: Other (2 cm laceration to the ulnar aspect of the left index finger directly distal to the MCP joint. Patient has full range of motion and strength to flexion and extension.) ED SKIN PROCEDURES - Laceration/Wound Repair Left Lateral Digit - 2nd (Index) Appearance: Subcutaneous Distal NVT: Neuro & Vascular Intact, No Tendon Injury Anesthetic Type: Local Local Anesthesia - Lidocaine (Xylocaine): 1% Plain Local Anesthetic Volume: 2cc Skin Prep: Chlorhexidine (Hibiciens), Providone-Iodine (Betadine), Saline, Sterile Drape Exploration/Debridement/Repair: Wound Explored, No Foreign Material Found Closed with: Sutures Lac/Wound length In cm: 2 Suture Size: 4-0 # of Sutures: 4 Suture Type: Nylon Sterile Dressing Applied: Nurse Tetanus Status Addressed: Yes Complications: No Course - Vital Signs Last Recorded V/S: Last Vital Signs Temp 98.1 F 07/11/20 18:58 Pulse 95 07/11/20 18:58 Resp 16 07/11/20 18:58 BP 144/88 H 07/11/20 18:58 Pulse Ox 96 07/11/20 18:58 - Orders/Labs/Meds Meds: Medications Discontinued Medications Generic Name Dose Route Start Last Admin Trade Name Kimberlee PRN Reason Stop Dose Admin Lidocaine HCl 10 ml 07/11/20 19:24 07/11/20 20:06 Xylocaine 1% INJECT 07/11/20 19:25 10 ml ONETIME ONE Administration Departure - Departure Time of Disposition: 20:00 Disposition: Home, Self-Care 01 Condition: Good Clinical Impression: Laceration - Discharge Information *PRESCRIPTION DRUG MONITORING PROGRAM REVIEWED*: No *COPY OF PRESCRIPTION DRUG MONITORING REPORT IN PATIENT ANAMARIA: No Instructions: Laceration Care, Adult Referrals: Eusebio Rice PA-C [Primary Care Provider] - Forms: ED Department Discharge Additional Instructions: You were seen in the emergency department today for a laceration to your left index finger. The wound was cleansed and closed with 4 sutures. These should stay intact for 7-10 days. After that time they may be removed in the clinic by a nurse. Keep the wound clean and dry. Wash with normal soap and water twice daily. Do not submerge the wound in water. Watch for signs of infection including increased redness, swelling, or purulent drainage. If these should occur, you should be seen either in the clinic or in the emergency department as antibiotic treatment may be needed. Return to the ER as needed. Sepsis Event Note (ED) - Evaluation Sepsis Screening Result: No Definite Risk - Focused Exam Vital Signs: Vital Signs Temp Pulse Resp BP Pulse Ox 07/11/20 18:58 98.1 F 95 16 144/88 H 96
== END 2020-07-11 20:13 | disposition home or self-care (01) ==
LOC: JD.ED 18:54
DX: S61.211A Laceration without foreign body of left index finger without damage to nail, initial encounter (principal); I10 Essential (primary) hypertension; K21.9 Gastro-esophageal reflux disease without esophagitis; M19.90 Unspecified osteoarthritis, unspecified site; E11.9 Type 2 diabetes mellitus without complications; Z88.5 Allergy status to narcotic agent; Z88.2 Allergy status to sulfonamides; Z79.82 Long term (current) use of aspirin; Z79.899 Other long term (current) drug therapy; W11.XXXA Fall on and from ladder, initial encounter
CPT/HCPCS: 12001; 99282; 99282-25